=== PATIENT | male | born 1960 | race Caucasian/White ===

== ENCOUNTER → 2019-06-27 | Outpatient (CLI) | payer BC ==
[~2019-06-27] MED LIST: AC500T; AMLO5TAB2 PO; ATRV10T; HYDR-3583 PO; METR500T PO; SULF1TAB35 PO
[2019-06-27 15:36] LABS: HEMOGLOBIN 15.2 G/DL (13.3-17.7); MEAN PLATELET VOLUME 10.3 FL (7.4-10.4); RED CELL DISTRIBUTION WIDTH 13.2 % (10.0-14.5); WHITE BLOOD COUNT 9.7 10^3/uL (4.3-11.0)
[2019-06-27 15:55] LABS: ALANINE AMINOTRANSFERASE 44 U/L (0-55); ALBUMIN 4.4 GM/DL (3.2-4.5); ALKALINE PHOSPHATASE 89 U/L (40-136); BILIRUBIN,TOTAL 0.4 MG/DL (0.1-1.0); BUN/CREATININE RATIO 14; CALCIUM 9.2 MG/DL (8.5-10.1); CARBON DIOXIDE 24 MMOL/L (21-32); CHLORIDE 106 MMOL/L (98-107); CREATININE SERUM 0.91 MG/DL (0.60-1.30); GFR ESTIMATED > 60; GLUCOSE 205 MG/DL (70-105); POTASSIUM 4.4 MMOL/L (3.6-5.0); SODIUM 139 MMOL/L (135-145); TOTAL PROTEIN 7.4 GM/DL (6.4-8.2); URIC ACID 5.4 MG/DL (2.6-7.2)
--- NOTE | 2019-06-27 19:18 | Diagnostic Imaging Report ---
EXAMINATION: Right hand radiographs, 3 views. COMPARISON: None. HISTORY: 59-year-old male, right hand swelling, erythema, and pain. FINDINGS: There is mild joint space loss at the fourth metacarpophalangeal joint. There is no identified bone erosion. There is no prominent osteophyte formation. There is no chondrocalcinosis. There is question of widening of the scapholunate interval. There is no proximal migration of the capitate. IMPRESSION: 1. Mild joint space loss of the fourth metacarpophalangeal joint without identified bone erosion. 2. Widening of the scapholunate interval without proximal migration of the capitate. This can be seen in posttraumatic etiology with tear of the scapholunate ligament. There are additional associations with calcium pyrophosphate dihydrate deposition disease and rheumatoid arthritis; however, there are no additional supportive findings of CPPD or rheumatoid arthritis. Dictated by: Dictated on workstation # [id number]
== END ==
LOC: RAD 14:39
PROVIDERS: ATTEND Physician Assistant
DX: M79.89 Other specified soft tissue disorders (principal); M79.641 Pain in right hand
CPT/HCPCS: 36415; 73130; 80053; 84550; 85027; 85652; 86141

== ENCOUNTER → 2020-11-20 | Outpatient (CLI) | payer BC, OTHER ==
--- NOTE | 2020-11-20 10:22 | Diagnostic Imaging Report ---
Indication: Pain. Findings: Lateral view suggests a small suprapatellar joint effusion. 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 There is some mild spurring off the superior patellar pole. No fracture or bony destructive process and no opaque loose body. Impression: Mild arthritic changes and likely small suprapatellar knee joint effusion, no other significant finding. Dictated by: Dictated on workstation # [id number]
== END ==
LOC: RAD 09:00
PROVIDERS: ATTEND Nurse Practitioner Family
DX: M17.12 Unilateral primary osteoarthritis, left knee (principal)
CPT/HCPCS: 73562

== ENCOUNTER 2020-12-05 05:31 | Outpatient (CLI) | payer OTHER ==
[~2020-12-05] VITALS: Ht 182.9 cm; Wt 127.1 kg
[2020-12-07] MEDS ORDERED: ATOR20TA66 PO (12:34)
[2020-12-07] MEDS ORDERED: LISI20TA26 PO (12:34)
[2020-12-07] MEDS ORDERED: CETI10TA49 PO (12:34)
[2020-12-07] MEDS ORDERED: FLUT15.845 NS (12:34)
== END 2020-12-10 12:47 | disposition home or self-care (01) ==
LOC: PREOP 05:31
PROVIDERS: ATTEND Surgery
DX: Z01.818 Encounter for other preprocedural examination (principal)

== ENCOUNTER 2020-12-12 11:40 | Day surgery (SDC) | payer OTHER ==
[~2020-12-12] VITALS: Ht 182.9 cm; Wt 127.1 kg
[~2020-12-12 11:40] MED LIST changes: +ATOR20TA66 PO; +CETI10TA49 PO; +FLUT15.845 NS; +LISI20TA26 PO
[2020-12-12] MEDS ORDERED: LIDOCAINE JELLY 2% 6 ML SYRINGE MM PRN (12:00)
[2020-12-12] MEDS ORDERED: fentaNYL INJ 100 MCG/2 ML AMP IVP ONE (12:00)
[2020-12-12] MEDS ORDERED: NS IV 500 ML 500 ML IV PRN (12:00)
[2020-12-12] MEDS ORDERED: MIDAZOLAM 5 MG/5 ML (VERSED) VIAL IV ONE (12:00)
--- NOTE | 2020-12-12 12:11 | Conscious Sedation/ASA ---
Conscious Sedation Pre-Proced Time 12:00 ASA Score 2 For ASA 3 and 4: Consider anesthesia and medical clearance. Also, for patients with a history of failed moderate sedation consider anesthesia. Airway Lungs Heart ASA score ASA 1: a normal healthy patient ASA 2: a patient with a mild systemic disease (mid diabetes, controlled hypertension, obesity ASA 3: a patient with a severe systemic disease that limits activity (angina, COPD, prior Myocardial infarction) ASA 4: a patient with an incapacitating disease that is a constant threat to life (CHF, renal failure) ASA 5: a moribund patient not expected to survive 24 hrs. (ruptured aneurysm) ASA 6: a declared brain- patient whose organs are being harvested. For emergent operations, add the letter E after the classification Mallampati Classification Grade 2 Sedation Plan Analgesia, Amnesia, Plan communicated to team members, Discussed options with patient/fam, Discussed risks with patient/fam The patient is an appropriate candidate to undergo the planned procedure, sedation, and anesthesia. The patient immediately re-assessed prior to indication. ERIBERTO BRENNAN MD Dec 12, 2020 12:11
[2020-12-12 12:12] VITALS: BP 140/79
--- NOTE | 2020-12-12 12:13 | Progress Note-Pre Operative ---
Pre-Operative Progress Note H&P Reviewed The H&P was reviewed, patient examined and no changes noted. Date Seen by Provider: Dec 12, 2020 Time Seen by Provider: 12:00 Date H&P Reviewed: Dec 12, 2020 Time H&P Reviewed: 12:00 Pre-Operative Diagnosis: screening /hx polyp ERIBERTO BRENNAN MD Dec 12, 2020 12:13
--- NOTE | 2020-12-12 12:14 | Discharge Inst-Surgical ---
D/C Lap Instructions-ANU Follow Up Activity as tolerated High Fiber Diet 25g or more per day Avoid Alcohol, Caffeine, Spicy [place] and Acid foods. Drink 64 fluid oz or more of fluids per day. Symptoms to Report: Fever over 101 degree F, Nausea/Vomiting If any problems/questions: Contact your physician or go to Emergency Room ERIBERTO BRENNAN MD Dec 12, 2020 12:14
[2020-12-12] MEDS ORDERED: ONDANSETRON 4 MG/2 ML (SDV) Z0FRAN IVP PRN (12:15)
[2020-12-12] MEDS ORDERED: ONDANSETRON 4 MG (ZOFRAN) ORAL DISSOLVE TAB PO PRN (12:15)
[2020-12-12] MEDS ORDERED: MIDAZOLAM 2 MG/2 ML (VERSED) VIAL ONE (13:28)
[2020-12-12] MEDS ORDERED: PROPOFOL INJECTION 50 ML IV ONE ×2 (13:28→13:56)
[2020-12-12 14:10] VITALS: BP 177/94
[2020-12-12 14:15] VITALS: BP_SYST 172; BP_SYST 173; BP_DIAS 82; BP_DIAS 95
--- NOTE | 2020-12-12 14:18 | Progress Note-Post Operative ---
Post-Operative Progess Note Surgeon (s)/Solid Waste Landfill Technician (s) Surgeon ERIBERTO BRENNAN MD Solid Waste Landfill Technician: none Pre-Operative Diagnosis screening /hx polyp Post-Operative Diagnosis mild chronic stage 2 ext and int hemorrhoids. Procedure & Operative Findings Date of Procedure 12/12/20 Procedure Performed/Findings colonoscopy Anesthesia Type mac Estimated Blood Loss Estimated blood loss (mL): minimal Specimens/Packing Specimens Removed none ERIBERTO BRENNAN MD Dec 12, 2020 14:18
--- NOTE | 2020-12-12 14:32 | Anesthesia-General Post-Op ---
MAC Patient Condition Mental Status/LOC: Same as Preop Cardiovascular: Satisfactory Nausea/Vomiting: Absent Respiratory: Satisfactory Pain: Controlled Complications: Absent Post Op Complications Complications None Follow Up Care/Instructions Patient Instructions None needed. Anesthesiology Discharge Order Discharge Order Patient is doing well, no complaints, stable vital signs, no apparent adverse anesthesia problems. No complications reported per nursing. BROOK FOX CRNA Dec 12, 2020 14:32
[2020-12-12 14:37] VITALS: BP 133/73
--- NOTE | 2020-12-12 23:51 | OPERATIVE REPORT ---
DATE OF SERVICE: 12/12/2020 ATTENDING PRIMARY CARE PHYSICIAN: Hammad Sibley MD PREOPERATIVE DIAGNOSIS: Screening colonoscopy. POSTOPERATIVE DIAGNOSIS: Mild chronic stage II external and internal hemorrhoids. PROCEDURE: Colonoscopy. SURGEON: Eriberto Brennan MD. ANESTHESIA: Monitored anesthesia care. ESTIMATED BLOOD LOSS: Minimal. FINDINGS: Same as postoperative diagnosis. DISPOSITION: The patient tolerated the procedure well. INDICATIONS: The patient is a 60-year-old male in need of a screening colonoscopy. He has had previous polyps before in the past, which were biopsied and found to be benign. He states no major issues with diarrhea nor constipation as well as no red blood per rectum nor any dark tarry stools. He also does not report any family history of colon cancer. DESCRIPTION OF PROCEDURE: The patient was brought to the endoscopy suite, laid in the left lateral decubitus position. After adequate IV pain and sedative medications and monitored anesthesia care, a digital rectal examination was performed. Mild chronic stage II external and internal hemorrhoids were identified, which were not actively edematous nor inflamed and no bleeding. Normal sphincter tone was felt and there were no palpable masses. Prostate gland was palpable and appeared normal. The endoscope was then intubated to the anus and rectum gently insufflated. The endoscope was then advanced through the valves of [place] of the rectum with no polyps or any neoplasms identified. Through the sigmoid colon, no diverticulosis identified. The endoscope was then advanced to the remainder of the descending, transverse and ascending colon to the cecum. These segments were normal. There were no polyps or any neoplasms identified. The endoscope was then slowly withdrawn with taking a second look and suctioning of residual air with no additional findings. The patient tolerated the procedure well. We will recommend incorporation of high-fiber diet with fiber supplementation, which should equal or exceed 30 grams daily as well as significant amounts of water to promote soft stools on a daily basis. No polyps were identified and he does not have any first-degree family history of colon cancer and if he is asymptomatic, he does not need another colonoscopy for another 10 years. Job ID: [id number] DocumentID: [id number] Dictated Date: 12/12/2020 14:14:49 Home Extension Agent Date: 12/12/2020 23:50:43 Dictated By: ERIBERTO BRENNAN MD
--- NOTE | 2020-12-13 10:46 | Anesthesia-General Post-Op ---
MAC Patient Condition Mental Status/LOC: Same as Preop Cardiovascular: Satisfactory Nausea/Vomiting: Absent Respiratory: Satisfactory Pain: Controlled Complications: Absent Post Op Complications Complications None Follow Up Care/Instructions Patient Instructions None needed. Anesthesiology Discharge Order Discharge Order Patient is doing well, no complaints, stable vital signs, no apparent adverse anesthesia problems. No complications reported per nursing. ENRIQUE BLACK CRNA Dec 13, 2020 10:46
== END 2020-12-12 14:41 | disposition home or self-care (01) ==
LOC: ENDO 11:40
PROVIDERS: ATTEND Surgery
DX: Z12.11 Encounter for screening for malignant neoplasm of colon (principal); K64.1 Second degree hemorrhoids; I10 Essential (primary) hypertension; G47.33 Obstructive sleep apnea (adult) (pediatric); Z79.899 Other long term (current) drug therapy

== ENCOUNTER → 2020-12-19 | Outpatient (CLI) | payer OTHER | LOC: RT 16:49 | PROVIDERS: ATTEND Internal Medicine | DX: R00.1 Bradycardia, unspecified (principal) | CPT/HCPCS: 93005 ==